=== PATIENT | female | born 1980 | race Caucasian/White ===

== ENCOUNTER 2016-08-08 15:58 | Emergency (ER) | payer MEDICAID, OTHER ==
[2016-08-08 16:18] VITALS: BP 116/76
--- NOTE | 2016-08-08 16:48 | UC ---
Lower Extremity/Ankle HPI - HPI Summary HPI Summary: Tripped while jumping over a fence yesterday, landed on L foot with rolled ankle. Is bearing weight with significant pain today. No hx of surgery in that foot. Is leaving for [place] tomorrow for 3 months. - History of Current Complaint Chief Complaint: UCLowerExtremity Stated Complaint: ANKLE OR FOOT INJURY Time Seen by Provider: 08/08/16 16:25 Hx Obtained From: Patient Hx Last Menstrual Period: 07/24/16 ?: No Onset/Duration: Sudden Onset - Allergies/Home Medications Allergies/Adverse Reactions: Allergies Allergy/AdvReac Type Severity Reaction Status Date / Time No Known Allergies Allergy Verified 04/24/15 13:52 PMH/Surg Hx/FS Hx/Imm Hx Previously Healthy: Yes - Surgical History Surgical History: Yes Surgery Procedure, Year, and Place: D&C x2. wisdom tooth (1) - Family History Known Family History: Positive: Unknown - Social History Alcohol Use: Rare Substance Use Type: None Substance Use Comment - Amount & Last Used: 2 days ago Smoking Status (MU): Current Every Day Smoker Type: Cigarettes Amount Used/How Often: 1/2 PPD Length of Time of Smoking/Using Tobacco: 16 years Have You Smoked in the Last Year: Yes Review of Systems Constitutional: Negative Skin: Negative Eyes: Negative ENT: Negative Respiratory: Negative Cardiovascular: Negative Gastrointestinal: Negative Genitourinary: Negative Motor: Negative Neurovascular: Negative Musculoskeletal: Arthralgia - L foot Neurological: Negative Psychological: Negative All Other Systems Reviewed And Are Negative: Yes Physical Exam Triage Information Reviewed: Yes Appearance: Well-Appearing, No Pain Distress, Well-Nourished Vital Signs: Initial Vital Signs Temp 98.6 F 08/08/16 16:14 Pulse 90 08/08/16 16:14 Resp 18 08/08/16 16:14 BP 116/76 08/08/16 16:14 Pulse Ox 100 08/08/16 16:14 Vital Signs Reviewed: Yes Eye Exam: Normal Eyes: Positive: Conjunctiva Clear ENT Exam: Normal ENT: Positive: Normal ENT inspection, Hearing grossly normal, Pharynx normal, TMs normal Dental Exam: Normal Neck exam: Normal Neck: Positive: Supple, Nontender, No Lymphadenopathy Respiratory Exam: Normal Respiratory: Positive: Chest non-tender, Lungs clear, Normal breath sounds, No respiratory distress, No accessory muscle use Cardiovascular Exam: Normal Cardiovascular: Positive: RRR, No Murmur Musculoskeletal: Positive: Strength Intact, ROM Intact, Other: - tender over L lateral foot and base of 5th MT Neurological Exam: Normal Neurological: Positive: Alert Psychological Exam: Normal Skin Exam: Normal Lower Extremity Course/Dx - Differential Dx/Diagnosis Provider Diagnoses: L foot sprain Discharge - Discharge Plan Condition: Stable Disposition: HOME Referrals: Emiliano RACHEL,Jesus Smallwood [Primary Care Provider] -
--- NOTE | 2016-08-08 17:09 | RAD ---
HISTORY: Rolling injury, left foot, left foot pain COMPARISONS: None VIEWS: 3, Frontal, lateral, and oblique views of the left foot FINDINGS: BONE DENSITY: Normal. BONES: There is no displaced fracture. JOINTS: There is no arthropathy. ALIGNMENT: There is no dislocation. SOFT TISSUES: Unremarkable. OTHER FINDINGS: None. IMPRESSION: NO ACUTE OSSEOUS INJURY. IF SYMPTOMS PERSIST, RECOMMEND REPEAT IMAGING.
== END 2016-08-08 17:26 | disposition home or self-care (01) ==
LOC: UCEAST 15:58
DX: S93.402A Sprain of unspecified ligament of left ankle, initial encounter (principal); W18.40XA Slipping, tripping and stumbling without falling, unspecified, initial encounter; F17.210 Nicotine dependence, cigarettes, uncomplicated
CPT/HCPCS: 99213; G0463